=== PATIENT | male | born 1970 | race Caucasian/White ===

== ENCOUNTER 2018-09-05 02:54 | Emergency (ER) | payer OTHER ==
[2018-09-05] VITALS (8 sets, daily range): BP systolic 125–163; BP diastolic 83–117
[~2018-09-05] VITALS: Ht 188 cm; Wt 122.5 kg
--- NOTE | 2018-09-05 03:12 | ER.PDOC ---
General Chief Complaint: Requesting Medical Care Stated Complaint: HBP TRAVEL OUT OF US: No Time seen by MD: 03:11 Source: patient, family Exam Limitations: no limitations History of Present Illness Initial Comments 48 Y/O MALE TO ED, STATES HE HAS NOT FEELING RIGHT THE LAST 3 DAYS. AGREES TO INCREASED BLOOD PRESSURE AND INCREASED STRESS. NO CP, NO SOB, NO WILSON, STATES HE CAN FEEL HIS PULSE IN HIS NECK , BUT NO PAIN. NO FEVER, NO SYNCOPE, CAME TO ED , FELT ANXIOUS WITH ELEVATED B/P. LAST PACER/DIFIB INTERROGATION X 2 MONTHS AGO. Severity: moderate Associated Symptoms: denies symptoms Allergies: Coded Allergies: propofol (Verified Allergy, Severe, 09/05/18) Home Meds Reported Medications Tamsulosin Hcl (FLOMAX) 0.4 Mg Cap.er.24h, 1 CAP PO DAILY, #30 CAP 11 Refills 09/05/18 Aspirin (ASPIR 81) 81 Mg Tablet.dr, 1 TAB PO DAILY, #30 TAB 5 Refills 09/05/18 Loperamide Hcl (IMODIUM A-D) 1 Mg/7.5 Ml Liquid, 1 MG PO DAILY24 09/05/18 Famotidine (PEPCID) 20 Mg Tablet, 1 TAB PO DAILY24, #60 TAB 3 Refills 09/05/18 Diflunisal (DIFLUNISAL) 500 Mg Tablet, 500 MG PO DAILY24, TABLET 09/05/18 Potassium Chloride (POTASSIUM CHLORIDE) 10 Meq Capsule.er, 1 CAP PO DAILY, #90 CAP 1 Refill 09/05/18 Terazosin Hcl (TERAZOSIN HCL) 10 Mg Capsule, 1 CAP PO DAILY, #90 CAP 1 Refill 09/05/18 Lisinopril (LISINOPRIL) 40 Mg Tablet, 1 TAB PO DAILY, #30 TAB 5 Refills 09/05/18 Losartan Potassium (LOSARTAN POTASSIUM) 100 Mg Tablet, 1 TAB PO DAILY, #30 TAB 5 Refills 09/05/18 Metoprolol Tartrate 25MG (LOPRESSER 25MG) 25 Mg Tablet, 1 TAB PO DAILY24, #180 TAB 1 Refill 09/05/18 Verapamil Hcl (VERAPAMIL ER) 240 Mg Cap24h.pel, 80 MG PO DAILY24 09/05/18 Ranolazine (RANEXA) 500 Mg Tab.er.12h, 1 TAB PO DAILY24, #60 TAB 3 Refills 09/05/18 Past Medical History Medical History: arrhythmia, cardiac problems, hypertension, other Surgical History: cardiac cath, appendectomy, cholecystectomy, gastric bypass, pacemaker/ICD, other Family History Significant Family History: no pertinent family hx Social History Smoking: non-smoker, chew Alcohol Use: none Drug Use: none Reviewed Nursing Reviewed: Vital Signs, Abn. Noted, Nursing Assessment Review of Systems Constitutional: malaise EENTM: no symptoms reported Respiratory: no symptoms reported Cardiovascular: no symptoms reported Gastrointestinal: no symptoms reported Genitourinary: no symptoms reported Musculoskeletal: no symptoms reported Skin: no symptoms reported Psychiatric/Neurological: no symptoms reported, anxiety Hematologic/Lymphatic: no symptoms reported Physical Exam General Appearance: No Apparent Distress, WD/WN, Anxious EENT: eyes nml inspection, nml ENT inspection, pharynx nml Neck: Non-Tender, Full Range of Motion, Supple, Normal Inspection Respiratory: chest non-tender, lungs clear, normal breath sounds, no respiratory distress CVS: reg rate & rhythm, no murmur, no gallop, pulses nml, nml capillary refill Gastrointestinal: Normal Bowel Sounds, No Organomegaly, No Pulsatile Mass, Non Tender Back: Normal Inspection, No CVA Tenderness Extremities: Normal Range of Motion, Non-Tender, Normal Inspection, No Pedal Edema, No Calf Tenderness, Normal Capillary Refill Neurologic/Psychiatric: assistant controller II-XII NML as Tested, No Motor/Sensory Deficits, Alert, Normal Mood/Affect, Oriented x 3 Skin: Normal Color, Warm/Dry Lymphatic: No Adenopathy Results/Orders Results/Orders Orders - SUZIE WADE DO Ekg-Routine (09/05/18 03:22) Saline Lock (09/05/18 03:27) Cbc With Auto Diff (09/05/18 03:27) Comprehensive Metabolic Panel (09/05/18 03:27) Troponin I (09/05/18 03:27) Creatine Kinase Mb (09/05/18 03:27) PT (09/05/18 03:27) Thyroid Stimulating Horm(Ml) (09/05/18 03:27) Xr Chest 2v (09/05/18 03:27) Probnp B-Type Brass Buffer (09/05/18 03:27) Partial Thromboplastin Time. (09/05/18 03:27) Labetalol Hcl (Trandate) (09/05/18 03:44) Labetalol Hcl (Trandate) (09/05/18 03:58) Acetaminophen (Tylenol) (09/05/18 04:28) Acetaminophen (Tylenol) (09/05/18 04:27) Vital Signs Date Time Temp Pulse Resp B/P (MAP) Pulse Ox O2 Delivery O2 Flow Rate FiO2 09/05/18 05:46 60 16 158/96 (116) 95 Room Air 09/05/18 05:15 60 16 136/83 (100) 99 Room Air 09/05/18 04:15 60 16 125/94 (104) 96 Room Air 09/05/18 04:00 61 16 159/96 (117) 96 Room Air 09/05/18 03:00 97.9 61 16 163/117 (132) 95 Room Air 97.9 09/05/18 03:00 97.9 61 16 95 Room Air 97.9 09/05/18 03:00 97.9 61 16 97.9 Administered Medications Medications (Trade) Dose Ordered Sig/Андрей Route PRN Reason Start Time Stop Time Status Last Admin Dose Admin Acetaminophen (Tylenol) 1,000 mg STAT STAT PO 09/05/18 04:28 09/05/18 04:29 DC 09/05/18 04:31 1,000 MG Laboratory Tests Test 09/05/18 03:17 White Blood Count 7.2 10^3/uL (4.5-11.0) Red Blood Count 4.86 10^6/uL (4.50-5.90) Hemoglobin 14.6 g/dL (13.9-16.3) Hematocrit 42.5 % (37.0-53.0) Mean Corpuscular Volume 87.4 fL (78-100) Mean Corpuscular Hemoglobin 30.0 pg (26-34) Mean Corpuscular Hemoglobin Concent 34.4 g/dL (33-37) Red Cell Distribution Width 13.3 % (11.5-14.5) Platelet Count 239 10^3/uL (150-400) Mean Platelet Volume 9.5 fL (7.8-11.0) Neutrophils (%) (Auto) 63.4 % (41.0-85.0) Lymphocytes (%) (Auto) 25.0 % (24.0-44.0) Monocytes (%) (Auto) 9.3 % (5.0-12.0) Neutrophils # (Auto) 4.6 10^3/uL (1.8-7.7) Lymphocytes # (Auto) 1.8 10^3/uL (1.0-4.8) Monocytes # (Auto) 0.7 10^3/uL (0.3-0.8) Absolute Immature Granulocyte (auto 0.02 10^3 u/L (0-2) Eosinophils % 1.4 % (0.0-5.0) Basophils % 0.6 % (0.0-0.2) H Basophils # 0.0 10^3/uL (0.0-0.1) Eosinophil Count 0.1 10^3/uL (0.0-0.2) Prothrombin Time 11.3 SEC (9.8-11.9) Prothrombin Time INR (Non-Therap) 1.1 PTT 24.5 SEC (24.67-30.72) Sodium Level 142 mmol/L (132-145) Potassium Level 3.9 mmol/L (3.6-5.2) Chloride Level 107.0 mmol/L (96-109) Carbon Dioxide Level 23.5 mmol/L (20.0-32) Anion Gap 15.4 Blood Urea Nitrogen 13 mg/dL (7-18) Creatinine 0.83 mg/dL (0.59-1.40) Estimated GFR () 120.7 (>/=60) BUN/Creatinine Ratio 15.0 Glucose Level 93 mg/dL (70-110) Calcium Level 9.3 mg/dL (8.4-10.5) Total Bilirubin 0.6 mg/dL (0.2-1.0) Aspartate Amino Transferase (AST) 15 U/L (0-35) Alanine Aminotransferase (ALT) 15 U/L (12-78) Alkaline Phosphatase 95 U/L (50-136) Creatine Kinase MB 0.9 ng/mL (0.5-3.6) Troponin I < 0.02 ng/mL (0.00-0.05) Pro-B-Type Natriuretic Peptide 193 pg/mL (0-125) H Total Protein 6.8 g/dL (6.4-8.2) Albumin 3.5 g/dL (3.4-5.0) Globulin 3.3 Thyroid Stimulating Hormone (TSH) 4.096 mIU/mL (0.358-3.740) Percent Immature Gran (Cell Imm) 0.30 % (0.00-0.50) Progress Progress 0430, NO DISTRESS MONITOR NSR WITH PACED RHYTHM., B/P-126/84. O6OO, DIFF DX IN DETAIL, NO CP, NO SOB, DOUBLE METOPROLOL DOSE AND FOLLOW UP WITH YOUR AIRPLANE PILOT. EKG/XRAY/CT/US EKG Comments: EKG NSR TO PACED RHYTHM Departure Time of Disposition: 06:06 Disposition: 01 HOME, SELF-CARE Impression: Primary Impression: HTN (hypertension) Additional Impressions: Paced cardiac rhythm Anxiety Condition: Stable Patient Instructions: Hypertension Referrals: PCP,UNKNOWN (PCP) PRIMARY CARE PROVIDER Additional Instructions: TO ED NEEDED OR IF WORSE, NO ADDED SALT IN DIET, CHANGE METOPROLOL 25 MG FROM 1 TAB A DAY TO 1 TAB TWICE A DAY, DRINK PLENTY WATER, FOLLOW UP WITH YOUR AIRPLANE PILOT FOR FURTHER EVAL. NO WORK FOR TODAY. Duration or Time Spent with Pa: 30 min SUZIE WADE DO September 05, 2018 03:12
--- NOTE | 2018-09-05 03:28 | PCM.EKG ---
[facility] Test Date: 2018-09-05 Test Time: 03:26:54 Pat Name: MACHO HENSLEY Department: [id number] Room: Gender: M Network Diagnostic Support Specialist: HERBERTH : 1970 Requested By: SUZIE WAED Order Number: [id number] Reading MD: Measurements Intervals [place] Rate: 62 P: 39 NM: QRS: 21 QRSD: 66 T: 25 QT: 398 QTc: 403 Interpretive Statements Electronic atrial pacemaker No previous ECG available for comparison Please click the below link to view image of tracing.
[2018-09-05 03:40] LABS: BASOPHIL % 0.6 % (0.0-0.2); EOSINOPHIL # 0.1 10^3/uL (0.0-0.2); EOSINOPHIL % 1.4 % (0.0-5.0); HEMOGLOBIN 14.6 g/dL (13.9-16.3); LYMPHOCYTES # 1.8 10^3/uL (1.0-4.8); MEAN CELL HGB CONCENTRATION 34.4 g/dL (33-37); MEAN CORP VOLUME 87.4 fL (78-100); MEAN PLATELET VOLUME 9.5 fL (7.8-11.0); MONOCYTES # 0.7 10^3/uL (0.3-0.8); MONOCYTES % 9.3 % (5.0-12.0); NEUTROPHIL # 4.6 10^3/uL (1.8-7.7); NEUTROPHILS % 63.4 % (41.0-85.0); RED CELL DISTRIBUTION WIDTH 13.3 % (11.5-14.5); WHITE BLOOD CELL 7.2 10^3/uL (4.5-11.0)
[2018-09-05] MEDS ORDERED: TRANDATE IV STA (03:44)
[2018-09-05] MEDS ORDERED: FAMO-75 PO (03:45)
[2018-09-05] MEDS ORDERED: LOSA100T14 PO (03:45)
[2018-09-05] MEDS ORDERED: RANO500T2 PO (03:45)
[2018-09-05] MEDS ORDERED: METO25TA4 PO (03:45)
[2018-09-05] MEDS ORDERED: TAMS-14 PO (03:45)
[2018-09-05] MEDS ORDERED: ASPI-484 PO (03:45)
[2018-09-05] MEDS ORDERED: DIFL500T PO (03:45)
[2018-09-05] MEDS ORDERED: LOPE1LIQ6 PO (03:45)
[2018-09-05] MEDS ORDERED: VERA240C2 PO (03:45)
[2018-09-05] MEDS ORDERED: TERA10CA3 PO (03:45)
[2018-09-05] MEDS ORDERED: POTA10CA PO (03:45)
[2018-09-05] MEDS ORDERED: LISI40TA PO (03:45)
[2018-09-05] MEDS ORDERED: TRANDATE IV ONE (03:58)
[2018-09-05 04:04] LABS: ALANINE AMINOTRANSFERASE(ML) 15 U/L (12-78); ALKALINE PHOSPHATASE 95 U/L (50-136); ASPARTATE AMINO TRANSFERASE 15 U/L (0-35); CALCIUM 9.3 mg/dL (8.4-10.5); CARBON DIOXIDE 23.5 mmol/L (20.0-32); GLUCOSE 93 mg/dL (70-110)
--- NOTE | 2018-09-05 04:07 | NUR ---
Labetalol Labetalol 10mg, was given to patient per Dr. Rivas verbal order.
--- NOTE | 2018-09-05 04:11 | NUR ---
Radiology Sindhu from Radiology notified of order
[2018-09-05] MEDS ORDERED: TYLENOL PO ONE (04:27)
[2018-09-05] MEDS ORDERED: TYLENOL PO STA (04:28)
--- NOTE | 2018-09-05 05:39 | DIREP ---
PROCEDURE:CHEST 2 VIEWS COMPARISON:[facility] and Spiral CT, CT, CT CHEST ABDOMEN W/O, 04/05/2018, 08:56 AM. [facility] and Spiral CT, CT, CT CHEST ABDOMEN W/, 12/12/2017, 08:51 AM. INDICATIONS:HTN FINDINGS: LUNGS/PLEURA:No significant pulmonary parenchymal abnormalities. No effusions. VASCULATURE:Normal. Unremarkable pulmonary vasculature. CARDIAC:Normal. No cardiac silhouette abnormality or cardiomegaly. Left pacemaker. MEDIASTINUM:Normal. No visible mass or adenopathy. BONES:Normal. No fracture or visible bony lesion. OTHER:Negative. CONCLUSION:No acute cardiopulmonary abnormalities. Dictated by: Sukh Gross M.D. on 09/05/2018 at 05:38 AM
--- NOTE | 2018-09-05 05:50 | NUR ---
Labadalol Labadalol 10mg IV given to patient per Dr. Rivas verbal order.
== END 2018-09-05 06:51 | disposition home or self-care (01) ==
LOC: ER 02:54
DX: I10 Essential (primary) hypertension (principal); I49.9 Cardiac arrhythmia, unspecified; F41.9 Anxiety disorder, unspecified; F43.9 Reaction to severe stress, unspecified; Z95.0 Presence of cardiac pacemaker; Z90.49 Acquired absence of other specified parts of digestive tract; Z79.82 Long term (current) use of aspirin; Z79.899 Other long term (current) drug therapy; Z88.8 Allergy status to other drugs, medicaments and biological substances
CPT/HCPCS: 36415; 71046; 80053; 82553; 83880; 84443; 84484; 85025; 85610; 85730; 93005; 96374; 99285; A9150; J3490

== ENCOUNTER → 2021-07-21 | Outpatient (CLI) | payer OTHER ==
[~2021-07-21] MED LIST: ASPI-485 PO; DIFL500T PO; FAMO-75 PO; LISI40TA10 PO; LOPE1LIQ6 PO; LOSA100T14 PO; METO25TA4 PO; POTA10CA PO; RANO500T2 PO; TAMS-14 PO; TERA10CA3 PO; VERA240C2 PO
[2021-07-21 12:40] LABS: BASOPHIL # 0.1 10^3/uL (0.0-0.1); BASOPHIL % 1.2 % (0.0-0.2); EOSINOPHIL # 0.1 10^3/uL (0.0-0.2); EOSINOPHIL % 1.1 % (0.0-5.0); LYMPHOCYTES # 1.51 10^3/uL1 (1.0-4.8); LYMPHOCYTES % 26.7 % (24.0-44.0); MEAN CORP HGB 28.4 pg (26-34); MONOCYTES # 0.7 10^3/uL (0.3-0.8); MONOCYTES % 11.5 % (5.0-12.0); NEUTROPHIL # 3.4 10^3/uL (1.8-7.7); NEUTROPHILS % 59.5 % (41.0-85.0); PLATELET COUNT 221 10^3/uL (150-400); RED CELL DISTRIBUTION WIDTH 13.3 % (11.5-14.5)
[2021-07-21 13:08] LABS: CARBON DIOXIDE 26.4 mmol/L (20.0-32)
== END | disposition home or self-care (01) ==
LOC: LAB 12:18
PROVIDERS: ATTEND Internal Medicine Cardiovascular Disease
DX: I10 Essential (primary) hypertension (principal); E78.2 Mixed hyperlipidemia
CPT/HCPCS: 36415; 80048; 80061; 80076; 85025

== ENCOUNTER → 2023-01-12 | Outpatient (CLI) | payer OTHER ==
[~2023-01-12] MED LIST changes: -LOSA100T14 PO; +LOSA100T15 PO; -POTA10CA PO; +POTA10CA76 PO
[2023-01-12 11:57] LABS: BASOPHIL % 0.9 % (0.0-0.2); EOSINOPHIL # 0.1 10^3/uL (0.0-0.2); EOSINOPHIL % 1.4 % (0.0-5.0); HEMATOCRIT(ML) 41.7 % (37.0-53.0); HEMOGLOBIN 13.3 g/dL (13.9-16.3); LYMPHOCYTES # 1.17 10^3/uL1 (1.0-4.8); LYMPHOCYTES % 26.7 % (24.0-44.0); MEAN CORP HGB 26.7 pg (26-34); MEAN CORP HGB CONCENTRATION 31.9 g/dL (33-36.5); MEAN CORP VOLUME 83.6 fL (78-100); MONOCYTES # 0.5 10^3/uL (0.3-0.8); MONOCYTES % 10.9 % (5.0-12.0); NEUTROPHIL # 2.6 10^3/uL (1.8-7.7); NEUTROPHILS % 59.9 % (41.0-85.0); PLATELET COUNT 225 10^3/uL (150-400); RED BLOOD CELL 4.99 10^6/uL (4.50-5.90); RED CELL DISTRIBUTION WIDTH 13.9 % (11.5-14.5); WHITE BLOOD CELL 4.4 10^3/uL (4.5-11.0)
[2023-01-12 12:02] LABS: +ADD MANUAL DIFF(NO CHRG) NO
[2023-01-12 12:06] LABS: CARBON DIOXIDE 26.8 mmol/L (20.0-32); CREATININE SERUM 0.9 mg/dL (0.59-1.40); EST GFR, NON-AA 89.3 (>/=60); INR 1.1; POTASSIUM 3.8 mmol/L (3.6-5.2); PROTHROMBIN PROTIME 11.6 SEC (9.7-11.6)
== END | disposition home or self-care (01) ==
LOC: LAB 11:42
PROVIDERS: ATTEND Internal Medicine Cardiovascular Disease
DX: I25.10 Atherosclerotic heart disease of native coronary artery without angina pectoris (principal)
CPT/HCPCS: 36415; 80048; 85025; 85610

== ENCOUNTER 2023-02-24 11:43 | Emergency (ER) | payer OTHER ==
[~2023-02-24] VITALS: Ht 185.4 cm; Wt 133.8 kg
[2023-02-24 11:43] VITALS: BP 156/100; PULSE 92; RESP 20; TEMP 98.4; O2SAT 93
[2023-02-24 12:03] LABS: BASOPHIL % 0.3 % (0.0-0.2); EOSINOPHIL % 1.4 % (0.0-5.0); HEMATOCRIT(ML) 39.4 % (37.0-53.0); HEMOGLOBIN 12.3 g/dL (13.9-16.3); LYMPHOCYTES # 0.33 10^3/uL1 (1.0-4.8); LYMPHOCYTES % 11.2 % (24.0-44.0); MEAN CORP HGB 26.2 pg (26-34); MEAN CORP HGB CONCENTRATION 31.2 g/dL (33-36.5); MONOCYTES % 0.3 % (5.0-12.0); NEUTROPHIL # 2.6 10^3/uL (1.8-7.7); NEUTROPHILS % 86.8 % (41.0-85.0); PLATELET COUNT 151 10^3/uL (150-400); RED BLOOD CELL 4.69 10^6/uL (4.50-5.90); RED CELL DISTRIBUTION WIDTH 14.3 % (11.5-14.5); WHITE BLOOD CELL 2.9 10^3/uL (4.5-11.0)
[2023-02-24 12:08] LABS: +ADD MANUAL DIFF(NO CHRG) NO
[2023-02-24 12:19] LABS: INR 1.1; PROTHROMBIN PROTIME 11.6 SEC (9.7-11.6)
[2023-02-24 12:26] LABS: TROPONIN I HIGH SENSITIVITY 8 ng/L (0-75)
[2023-02-24 12:31] LABS: ALANINE AMINOTRANSFERASE(ML) 20 U/L (12-78); ALBUMIN(ML) 3.2 g/dL (3.4-5.0); ALBUMIN/GLOBULIN RATIO 1.066; ALKALINE PHOSPHATASE 73 U/L (50-136); ANION GAP 12.1; ASPARTATE AMINO TRANSFERASE 14 U/L (0-35); CALCIUM 8.7 mg/dL (8.4-10.5); CARBON DIOXIDE 24.5 mmol/L (20.0-32); CREATINE KINASE 94 U/L (39-308); CREATININE SERUM 1.07 mg/dL (0.59-1.40); EST GFR, NON-AA 73.2 (>/=60); GLUCOSE 87 mg/dL (74-106); POTASSIUM 3.6 mmol/L (3.6-5.2); SODIUM 139 mmol/L (132-145)
[2023-02-24 12:32] LABS: CREATINE KINASE MB < 0.5 ng/mL (0.5-3.6)
== END 2023-02-24 14:57 | disposition home or self-care (01) ==
LOC: ER 11:43 → EDBD 11:43 → ER 14:57
DX: R07.9 Chest pain, unspecified (principal); F41.9 Anxiety disorder, unspecified; I10 Essential (primary) hypertension; Z88.5 Allergy status to narcotic agent
CPT/HCPCS: 36415; 71045; 80053; 82550; 82553; 83880; 84484; 85025; 85610; 85730; 93005; 99285

== ENCOUNTER → 2023-05-03 | Outpatient (CLI) | payer OTHER ==
[2023-05-03 10:06] LABS: BASOPHIL % 0.4 % (0.0-0.2); EOSINOPHIL # 0.1 10^3/uL (0.0-0.2); EOSINOPHIL % 0.9 % (0.0-5.0); HEMATOCRIT(ML) 43.3 % (37.0-53.0); HEMOGLOBIN 13.5 g/dL (13.9-16.3); LYMPHOCYTES # 1.51 10^3/uL1 (1.0-4.8); MEAN CORP HGB 25.7 pg (26-34); MEAN CORP HGB CONCENTRATION 31.2 g/dL (33-36.5); MEAN CORP VOLUME 82.5 fL (78-100); MONOCYTES # 0.6 10^3/uL (0.3-0.8); MONOCYTES % 8.9 % (5.0-12.0); NEUTROPHIL # 4.7 10^3/uL (1.8-7.7); NEUTROPHILS % 67.7 % (41.0-85.0); PLATELET COUNT 227 10^3/uL (150-400); RED BLOOD CELL 5.25 10^6/uL (4.50-5.90); RED CELL DISTRIBUTION WIDTH 14.9 % (11.5-14.5); WHITE BLOOD CELL 6.9 10^3/uL (4.5-11.0)
[2023-05-03 10:07] LABS: +ADD MANUAL DIFF(NO CHRG) NO
[2023-05-03 10:17] LABS: ANION GAP 8.2; BUN/CREATININE RATIO 16.66 (10.0-20.0); CALCIUM 9.5 mg/dL (8.4-10.5); CARBON DIOXIDE 33.9 mmol/L (20.0-32); CREATININE SERUM 0.96 mg/dL (0.59-1.40); EST GFR, NON-AA 82.6 (>/=60); POTASSIUM 4.1 mmol/L (3.6-5.2)
== END | disposition home or self-care (01) ==
LOC: LAB 09:53
PROVIDERS: ATTEND Internal Medicine Cardiovascular Disease
DX: I10 Essential (primary) hypertension (principal); E78.2 Mixed hyperlipidemia; I47.20 Ventricular tachycardia, unspecified; Z79.899 Other long term (current) drug therapy
CPT/HCPCS: 36415; 80048; 80061; 82550; 85025

== ENCOUNTER 2023-05-21 10:05 | Observation (INO) | payer OTHER ==
[~2023-05-21] VITALS: Ht 185.4 cm; Wt 145.2 kg
[2023-05-21 10:05] VITALS: BP_SYST 112; BP_SYST 188; BP_DIAS 81; BP_DIAS 95; PULSE 47; RESP 18; TEMP 98.5; O2SAT 99
[2023-05-21] MEDS ORDERED: DILAUDID ONE (10:27)
[2023-05-21] MEDS ORDERED: ZOFRAN ONE (10:27)
[2023-05-21] MEDS: DILAUDID IV STA (10:30)
[2023-05-21] MEDS: ZOFRAN IV STA (10:30)
[2023-05-21 10:38] LABS: BASOPHIL % 0.1 % (0.0-0.2); EOSINOPHIL % 0.1 % (0.0-5.0); HEMATOCRIT(ML) 41.8 % (37.0-53.0); HEMOGLOBIN 13.5 g/dL (13.9-16.3); LYMPHOCYTES # 1.23 10^3/uL1 (1.0-4.8); LYMPHOCYTES % 8.7 % (24.0-44.0); MEAN CORP HGB 26.3 pg (26-34); MEAN CORP HGB CONCENTRATION 32.3 g/dL (33-36.5); MEAN CORP VOLUME 81.3 fL (78-100); MONOCYTES # 1.4 10^3/uL (0.3-0.8); MONOCYTES % 9.7 % (5.0-12.0); NEUTROPHIL # 11.4 10^3/uL (1.8-7.7); NEUTROPHILS % 80.5 % (41.0-85.0); PLATELET COUNT 297 10^3/uL (150-400); RED BLOOD CELL 5.14 10^6/uL (4.50-5.90); RED CELL DISTRIBUTION WIDTH 15.4 % (11.5-14.5); WHITE BLOOD CELL 14.1 10^3/uL (4.5-11.0)
[2023-05-21 10:39] LABS: +ADD MANUAL DIFF(NO CHRG) NO
[2023-05-21 11:10] LABS: ALBUMIN(ML) 2.9 g/dL (3.4-5.0); ALBUMIN/GLOBULIN RATIO 0.935; ANION GAP 12.9; BUN/CREATININE RATIO 29.47 (10.0-20.0); CALCIUM 8.2 mg/dL (8.4-10.5); CARBON DIOXIDE 22.5 mmol/L (20.0-32); CREATINE KINASE MB 0.8 ng/mL (0.5-3.6); CREATININE SERUM 0.95 mg/dL (0.59-1.40); EST GFR, NON-AA 83.6 (>/=60); POTASSIUM 3.4 mmol/L (3.6-5.2)
[2023-05-21 11:26] LABS: INR 1.2; PROTHROMBIN PROTIME 12.4 SEC (9.7-11.6)
[2023-05-21 11:36] VITALS: BP 157/81; PULSE 41; RESP 18; TEMP 98.5; O2SAT 99
[2023-05-21 12:57] VITALS: BP 139/82; PULSE 88; RESP 18; TEMP 98.5; O2SAT 99
[2023-05-21] MEDS ORDERED: TORADOL ONE (13:19)
[2023-05-21] MEDS: TORADOL IV STA (13:21)
[2023-05-21] MEDS ORDERED: ZOFRAN IV PRN (15:30)
[2023-05-21] MEDS: MORPHINE SULFATE IV PRN (15:35)
[2023-05-21] MEDS ORDERED: MORPHINE SULFATE ONE (15:35)
[2023-05-21 16:15] VITALS: BP 145/91; PULSE 60; RESP 18; TEMP 97.6; O2SAT 96
[2023-05-21] MEDS: RANEXA PO SCH (18:09)
[2023-05-21] MEDS: LOPRESSER PO SCH (18:09)
[2023-05-21] MEDS: FLEXERIL PO ONE (20:00)
[2023-05-21] MEDS: ULTRAM PO PRN (20:13)
[2023-05-21 21:16] VITALS: BP 151/99; PULSE 51; RESP 18; TEMP 97.3; O2SAT 99
[2023-05-22 00:07] VITALS: BP 124/83; PULSE 50; RESP 20; TEMP 97; O2SAT 96
[2023-05-22 04:34] VITALS: BP 133/85; PULSE 51; RESP 18; TEMP 97.8; O2SAT 96
[2023-05-22] MEDS: MORPHINE SULFATE IV PRN ×2 (05:03→15:49)
[2023-05-22 06:52] LABS: BASOPHIL % 0.1 % (0.0-0.2); EOSINOPHIL % 0.3 % (0.0-5.0); HEMATOCRIT(ML) 41.6 % (37.0-53.0); HEMOGLOBIN 13.2 g/dL (13.9-16.3); LYMPHOCYTES # 1.43 10^3/uL1 (1.0-4.8); LYMPHOCYTES % 13.3 % (24.0-44.0); MEAN CORP HGB 26.6 pg (26-34); MEAN CORP HGB CONCENTRATION 31.7 g/dL (33-36.5); MEAN CORP VOLUME 83.7 fL (78-100); MONOCYTES # 1.5 10^3/uL (0.3-0.8); MONOCYTES % 13.8 % (5.0-12.0); NEUTROPHIL # 7.7 10^3/uL (1.8-7.7); NEUTROPHILS % 71.8 % (41.0-85.0); PLATELET COUNT 214 10^3/uL (150-400); RED BLOOD CELL 4.97 10^6/uL (4.50-5.90); RED CELL DISTRIBUTION WIDTH 15.8 % (11.5-14.5); WHITE BLOOD CELL 10.7 10^3/uL (4.5-11.0)
[2023-05-22 06:55] LABS: +ADD MANUAL DIFF(NO CHRG) NO
[2023-05-22 06:56] LABS: ALBUMIN(ML) 2.5 g/dL (3.4-5.0); ALBUMIN/GLOBULIN RATIO 0.862; ANION GAP 11.3; BUN/CREATININE RATIO 38.66 (10.0-20.0); CALCIUM 8.7 mg/dL (8.4-10.5); CARBON DIOXIDE 26.7 mmol/L (20.0-32); CREATININE SERUM 0.75 mg/dL (0.59-1.40); EST GFR, NON-AA 109.8 (>/=60)
[2023-05-22 08:58] VITALS: BP 161/99; PULSE 100; RESP 16; TEMP 98; O2SAT 95
[2023-05-22] MEDS: COZAAR PO SCH (09:24)
[2023-05-22] MEDS: PROTONIX IV IV SCH (09:24)
[2023-05-22] MEDS: ASPIRIN EC PO SCH (09:25)
[2023-05-22] MEDS: FLOMAX PO SCH (09:25)
[2023-05-22] MEDS ORDERED: MORPHINE SULFATE IV PRN (09:30)
[2023-05-22 10:49] LABS: BILIRUBIN,URINE NEGATIVE (NEGATIVE); LEUKOCYTE ESTERASE ,URINE NEGATIVE (NEGATIVE); NITRATE,URINE NEGATIVE (NEGATIVE); UROBILINOGEN,URINE 0.2 E.U./dL (0.2)
[2023-05-22 11:00] LABS: UAMPH METHAMP(SCRN) NEGATIVE (co1000ng/mL); UR MDMA (ECSTASY) SCRN NEGATIVE (c/o300ng/mL); UR METHADONE SCRN NEGATIVE (c/o300ng/mL); UR OPIATE SCRN PRESUMPTIVE POSITIVE (c/o300ng/mL); UR PHENCYCLIDINE (PCP) SCRN NEGATIVE (c/o 25ng/mL); UR TETRAHYDROCANNABINOL SCRN NEGATIVE (c/o 50ng/mL)
[2023-05-22] MEDS: LACTATED RINGERS 1,000 ML IV SCH (11:10)
[2023-05-22 11:26] LABS: APPEARANCE,URINE CLEAR; UA COLOR YELLOW
[2023-05-22 12:00] VITALS: BP 142/86; PULSE 85; RESP 16; TEMP 98.5; O2SAT 96
[2023-05-22] MEDS: CALAN PO SCH (16:00)
[2023-05-22 16:20] VITALS: BP 116/77; PULSE 61; RESP 16; TEMP 99.7; O2SAT 98
[2023-05-22 19:01] VITALS: BP 108/68; PULSE 89; RESP 18; TEMP 98.6; O2SAT 92
[2023-05-23 00:04] VITALS: BP 104/65; PULSE 68; RESP 17; TEMP 98.5; O2SAT 94
[2023-05-23 03:23] VITALS: BP 140/81; PULSE 70; RESP 18; TEMP 98.5; O2SAT 93
[2023-05-23] MEDS: TYLENOL PO PRN (03:24)
[2023-05-23] MEDS: LOVENOX SQ STA (10:00)
[2023-05-23] MEDS: ELIQUIS PO SCH (10:00)
[2023-05-23] MEDS ORDERED: TRAM50TA PO (10:03)
[2023-05-23] MEDS ORDERED: APIX5TAB PO (10:03)
[2023-05-23 10:20] VITALS: BP 148/89; PULSE 88; RESP 20; TEMP 98.4; O2SAT 99
[2023-05-23 12:35] VITALS: BP 148/89; PULSE 88; RESP 20; TEMP 98.4; O2SAT 99
[2023-05-26 17:17] LABS: OPIATES Positive (.)
[2023-05-27 06:49] LABS: CODEINE Negative
[2023-05-27 06:50] LABS: MORPHINE GC/MS CONF >2000 ng/mL
== END 2023-05-23 11:50 | disposition home or self-care (01) ==
LOC: EDBD 10:05 → ER 10:05 → EDUNIT# 10:05 → MS 13:20
PROVIDERS: ADMIT Student in an Organized Health Care Education/Training Program; ATTEND Student in an Organized Health Care Education/Training Program
DX: R10.13 Epigastric pain (principal); I82.622 Acute embolism and thrombosis of deep veins of left upper extremity; R07.9 Chest pain, unspecified; I25.10 Atherosclerotic heart disease of native coronary artery without angina pectoris; I10 Essential (primary) hypertension; N40.0 Benign prostatic hyperplasia without lower urinary tract symptoms; K52.9 Noninfective gastroenteritis and colitis, unspecified; F41.9 Anxiety disorder, unspecified; R25.1 Tremor, unspecified; R73.9 Hyperglycemia, unspecified; J02.0 Streptococcal pharyngitis; M79.89 Other specified soft tissue disorders; E66.01 Morbid (severe) obesity due to excess calories; K76.0 Fatty (change of) liver, not elsewhere classified; Z88.5 Allergy status to narcotic agent; Z95.0 Presence of cardiac pacemaker; Z90.49 Acquired absence of other specified parts of digestive tract; Z98.84 Bariatric surgery status; Z79.82 Long term (current) use of aspirin; Z79.899 Other long term (current) drug therapy; Z68.41 Body mass index [BMI] 40.0-44.9, adult
CPT/HCPCS: 96374; 96375 ×2; 99285; 71045; 71275; 74177; 81003; 80053 ×2; 85025 ×2; 36415 ×2; 85379; 84484 ×3; 82553; 83880; 82550; 83690 ×2; 85610; 85730; 93005; 96376; 74176; 74019; 80361; 80307; 86703; 84153; 84100; 83735; 82378; 96372; 93971; 87045; G0378 ×46; J1170; J2405; J1885; J8499 ×4; Q9966; J2270 ×2; J7120 ×3; C9113; Q9963; J1650; A9150; 83630

== ENCOUNTER → 2023-06-22 | Outpatient (CLI) | payer OTHER ==
[~2023-06-22] MED LIST changes: +APIX5TAB PO; +TRAM50TA PO
== END | disposition home or self-care (01) ==
LOC: RAD 12:19
PROVIDERS: ATTEND Internal Medicine
DX: I82.592 Chronic embolism and thrombosis of other specified deep vein of left lower extremity (principal)
CPT/HCPCS: 93971